=== PATIENT | female | born 1970 | race African-American/Black ===

== ENCOUNTER 2019-06-06 00:15 | Emergency (ER) | payer OTHER ==
[~2019-06-06] VITALS: Ht 149.9 cm; Wt 74.8 kg
[2019-06-06 00:44] VITALS: BP 137/96
--- NOTE | 2019-06-06 00:45 | NUR ---
ED Nurse Note: Pt walked into ER c/o LT arm pain s/p fall on 05/31. Pt stated 8/10 pain from LT neck to LT arm. Pt stated no hx of prior falls.AAO x4, VSS at this time.
[2019-06-06] MEDS ORDERED: IBUPROFEN600 MG ORAL (01:50)
--- NOTE | 2019-06-06 01:54 | NUR ---
ED Nurse Note: THERESA wrap was aplyed on the left arm.
[2019-06-06 01:55] VITALS: BP 137/96
--- NOTE | 2019-06-06 01:55 | NUR ---
ED Nurse Note: Pt cleared by health care Provider for discharge. DC instructions/prescription was given and explained to pt and verbalized understanding of teachings. All medical deviecs such as ID band removed. Pt is AAO x4, ambulatory and left with all personal belongings.
--- NOTE | 2019-06-06 01:59 | Diagnostic Imaging Report ---
EXAM: XR Left Forearm, 2 Views CLINICAL HISTORY: PAIN TECHNIQUE: Frontal and lateral views of the left forearm. COMPARISON: No relevant prior studies available. FINDINGS: Bones/joints: No acute fracture. No dislocation. Soft tissues: Unremarkable. IMPRESSION: No acute osseous findings.
--- NOTE | 2019-06-06 01:59 | Diagnostic Imaging Report ---
EXAM: XR Left Elbow Complete, 3 or More Views CLINICAL HISTORY: PAIN TECHNIQUE: Frontal, lateral and oblique views of the left elbow. COMPARISON: No relevant prior studies available. FINDINGS: Bones/joints: No acute fracture. No dislocation. Soft tissues: Unremarkable. IMPRESSION: No acute osseous findings.
--- NOTE | 2019-06-06 21:12 | Emergency Room Report ---
History of Present Illness General Chief Complaint: Pain Source: Patient Present Illness Allergies: Coded Allergies: No Known Allergies (Unverified , 02/19/16) Patient History Last Menstrual Period: na Now: No Nursing Documentation-[facility] Hx Hypertension: Yes Physical Exam Vital Signs Date Time Temp Pulse Resp B/P (MAP) Pulse Ox O2 Delivery O2 Flow Rate FiO2 06/06/19 00:22 98.4 81 16 137/96 (110) 95 Room Air Medical Decision Making Diagnostic Impression: Primary Impression: Arm contusion Last Vital Signs Date Time Temp Pulse Resp B/P (MAP) Pulse Ox O2 Delivery O2 Flow Rate FiO2 06/06/19 01:55 98.4 16 137/96 95 Room Air 06/06/19 00:22 81 Status: improved Disposition: HOME, SELF-CARE Condition: Stable Scripts Ibuprofen* (MOTRIN*) 600 Mg Tablet 600 MG ORAL Q8H PRN for For Pain, #30 TAB 0 Refills Prov: Miguel Sanchez MD 06/06/19 Patient Instructions: Contusion, [id number] Miguel Sanchez MD Jun 06, 2019 21:12
== END 2019-06-06 01:58 | disposition home or self-care (01) ==
LOC: EMR 00:40
DX: S40.022A Contusion of left upper arm, initial encounter (principal); W18.30XA Fall on same level, unspecified, initial encounter; Y92.9 Unspecified place or not applicable
CPT/HCPCS: 99284